=== PATIENT | male | born 1960 | race Caucasian/White ===

== ENCOUNTER 2024-01-27 09:29 | Outpatient (CLI) | payer BC ==
[2024-01-27 19:26] LABS: ALBUMIN 4.3 g/dL (3.2-5.5); ALBUMIN/GLOBULIN RATIO 1.4 (1.0-2.2); BILIRUBIN,TOTAL 0.3 mg/dL (0.2-1.0); CALCIUM 9.4 mg/dL (8.5-10.3); CREATININE 0.8 mg/dL (0.6-1.3); POTASSIUM 3.6 mmol/L (3.5-4.5); TOTAL PROTEIN 7.3 g/dL (6.4-8.9)
[2024-01-27 20:33] LABS: ESTIMATED AVERAGE GLUCOSE 128 mg/dL (70-100); HEMOGLOBIN A1c% 6.1 % (4.27-6.07)
== END 2024-01-27 09:30 | disposition home or self-care (01) ==
LOC: LAB.N 09:29
PROVIDERS: ATTEND Family Medicine
DX: I73.9 Peripheral vascular disease, unspecified (principal)
CPT/HCPCS: 36415; 80053; 83036

== ENCOUNTER 2024-02-03 13:20 | Outpatient (CLI) | payer BC ==
--- NOTE | 2024-02-03 18:51 | Ultrasound Report ---
PROCEDURE: Ankle Brachial Index INDICATIONS: PVD TECHNIQUE: Ankle-brachial indices were obtained bilaterally and recorded. COMPARISONS: None. FINDINGS: Right ankle brachial index (ERWIN): 1.02 Left ankle brachial index (ERWIN): 0.96 IMPRESSION: 1. Normal bilateral resting ABIs. Reviewed by: Faheem Donovan MD on 02/03/2024 6:50 PM PDT Approved by: Faheem Donovan MD on 02/03/2024 6:50 PM PDT Station ID: [id number]
== END 2024-02-03 13:21 | disposition home or self-care (01) ==
LOC: DI 13:20
PROVIDERS: ATTEND Family Medicine
DX: I73.9 Peripheral vascular disease, unspecified (principal); R60.0 Localized edema; N40.0 Benign prostatic hyperplasia without lower urinary tract symptoms; N32.89 Other specified disorders of bladder; N21.0 Calculus in bladder; Z90.49 Acquired absence of other specified parts of digestive tract
CPT/HCPCS: 93922

== ENCOUNTER 2024-02-03 13:22 | Outpatient (CLI) | payer BC ==
[2024-02-03] MEDS ORDERED: iohexoL-300 150 ML BOTTLE ONE (13:30)
[2024-02-03] MEDS: iohexoL-300 150 ML BOTTLE IVP ONE (19:10)
--- NOTE | 2024-02-03 19:12 | CT Report ---
PROCEDURE: Angio Abdomen Runoff BL INDICATIONS: PVD CONTRAST: 125ml omni 300 TECHNIQUE: After the administration of intravenous contrast, a CT scan of the abdomen, pelvis and lower extremit ies (to the feet) was performed. Images were recorded and evaluated at appropriate window settings. R eformats: coronal and sagittal. For radiation dose reduction, the following was used: automated expos ure control, adjustment of mA and/or kV according to patient size. COMPARISON: None. FINDINGS: Image quality: Excellent. Abdominal aorta: There is mixed hard and soft plaque. There is no hemodynamically significant stenos is. Right lower extremity: Common iliac artery: No stenosis External iliac artery: No stenosis Common femoral artery: No significant atherosclerotic disease. Superficial femoral artery: Mild disease. No stenosis. Popliteal artery: No stenosis. Anterior tibial artery: Straight line flow. Somewhat diminutive distally. Peroneal artery: Small vessel, patent to above the ankle Posterior tibial artery: Dominant, patent Left lower extremity: Right lower extremity: Common iliac artery: Plaque. No stenosis. External iliac artery: No significant stenosis Common femoral artery: No significant atherosclerotic disease. Superficial femoral artery: Mild nonflow limiting distal disease. Popliteal artery: No significant atherosclerotic disease. Anterior tibial artery: Straight line flow. Somewhat diminutive distally. Peroneal artery: Small vessel, patent to level of the ankle. Posterior tibial artery: Dominant vessel. Patent. OTHER: Lung bases and heart: Unremarkable. Liver: No solid mass. Low-density lesions likely represent cysts.. Gallbladder and biliary tree: Surgically absent. No biliary dilation, accounting for post-cholecystec kadeem state. Spleen: No splenomegaly. Pancreas: No pancreatic ductal dilation. Adrenals: No adrenal nodule. Kidneys and ureters: No hydronephrosis. No renal cystic lesion which requires follow up. No solid mas s. Bowel and peritoneum: No bowel distension. No pathologic free fluid. Lymph nodes: No central or retroperitoneal adenopathy. Vessels: No infrarenal aortic aneurysm. Reproductive organs: Prostatomegaly. Bladder: There are bladder stones present. There is bladder wall thickening and questionable trabecul ation. Pelvic lymph nodes: No pelvic adenopathy by size criteria. Bones: No aggressive osseous abnormality. Other: Tiny right inguinal hernia. Somewhat prominent left inguinal hernia containing fat. IMPRESSION: 1. There is mild peripheral vascular disease. There is no significant stenosis involving the abdomina l aorta, iliacs, and bilateral lower extremity runoff vessels. There is 3 vessel runoff bilaterally. 2. No acute process in the abdomen and pelvis. 3. Remote cholecystectomy. 4. Prostatomegaly. 5. Bladder trabeculations and bladder stones. Question bladder outlet obstruction versus neurogenic b ladder. Reviewed by: Faheem Donovan MD on 02/03/2024 7:10 PM PDT Approved by: Faheem Donovan MD on 02/03/2024 7:10 PM PDT Station ID: [id number]
== END 2024-02-03 13:23 | disposition home or self-care (01) ==
LOC: DI 13:22
PROVIDERS: ATTEND Family Medicine
DX: R60.0 Localized edema (principal); I73.9 Peripheral vascular disease, unspecified; N40.0 Benign prostatic hyperplasia without lower urinary tract symptoms; N32.89 Other specified disorders of bladder; N21.0 Calculus in bladder; Z90.49 Acquired absence of other specified parts of digestive tract

== ENCOUNTER 2024-03-09 07:49 | Outpatient (CLI) | payer BC ==
[2024-03-09 12:19] LABS: BILIRUBIN,URINE NEGATIVE (NEGATIVE); GLUCOSE, URINE (UA) NEGATIVE (NEGATIVE); KETONES,URINE (UA) NEGATIVE (NEGATIVE); LEUKOCYTE ESTERASE, URINE NEGATIVE (NEGATIVE); NITRITE,URINE NEGATIVE (NEGATIVE); OCCULT BLOOD,URINE MODERATE (NEGATIVE); PH,URINE 7.5 PH (5.0-7.5); PROTEIN,URINE NEGATIVE (NEGATIVE); UROBILINOGEN,URINE 0.2 (NORMAL) E.U./dL (NORMAL)
[2024-03-09 12:32] LABS: AMORPHOUS SEDIMENT,UR Moderate /LPF; BACTERIA,URINE Rare /HPF (None Seen); CLARITY,URINE SL. CLOUDY (CLEAR); SQUAMOUS EPITHELIAL CELL,UR RARE Squamous (<= Few)
[2024-03-09 12:36] LABS: CHOL/HDL RATIO 4.3 (<5.0); CHOLESTEROL 195 mg/dL; HDL CHOLESTEROL 45 mg/dL; LDL CHOLESTEROL,CALCULATED 107 mg/dL; LDL/HDL RATIO 2.4 (<3.6); TRIGLYCERIDES 213 mg/dL; VLDL CHOLESTEROL 43 mg/dL
[2024-03-09 12:45] LABS: THYROID STIMULATING HORMONE 1.34 uIU/mL (0.34-5.60)
[2024-03-11 05:09] LABS: HCV AB Non Reactive (Non Reactive)
[2024-03-12 15:08] LABS: A/G RATIO 1.3 (0.7-1.7); ALBUMIN 4.1 g/dL (2.9-4.4); ALPHA-1-GLOBULIN 0.2 g/dL (0.0-0.4); ALPHA-2-GLOBULIN 0.8 g/dL (0.4-1.0); BETA GLOBULIN 1.1 g/dL (0.7-1.3); GAMMA GLOBULIN 1.1 g/dL (0.4-1.8); GLOBULIN, TOTAL 3.2 g/dL (2.2-3.9); PROTEIN TOTAL 7.3 g/dL (6.0-8.5)
== END 2024-03-09 07:50 | disposition home or self-care (01) ==
LOC: LAB.N 07:49
PROVIDERS: ATTEND Physician Assistant
DX: E78.5 Hyperlipidemia, unspecified (principal); R93.41 Abnormal radiologic findings on diagnostic imaging of renal pelvis, ureter, or bladder; G62.9 Polyneuropathy, unspecified; Z12.5 Encounter for screening for malignant neoplasm of prostate
CPT/HCPCS: 36415; 80061; 81001; 82607; 83721; 84153; 84155; 84165; 84443; 86803; 87086

== ENCOUNTER 2024-04-04 16:02 | Outpatient (CLI) | payer BC ==
[2024-04-04 16:08] LABS: BILIRUBIN,URINE NEGATIVE (NEGATIVE); GLUCOSE, URINE (UA) NEGATIVE (NEGATIVE); KETONES,URINE (UA) NEGATIVE (NEGATIVE); LEUKOCYTE ESTERASE, URINE NEGATIVE (NEGATIVE); NITRITE,URINE NEGATIVE (NEGATIVE); OCCULT BLOOD,URINE SMALL (NEGATIVE); PH,URINE 6.5 PH (5.0-7.5); PROTEIN,URINE NEGATIVE (NEGATIVE); UROBILINOGEN,URINE 0.2 (NORMAL) E.U./dL (NORMAL)
[2024-04-04 16:16] LABS: BACTERIA,URINE Rare /HPF (None Seen); CLARITY,URINE HAZY (CLEAR); RBC,URINE 0-5 /HPF (0-5); SQUAMOUS EPITHELIAL CELL,UR NONE SEEN (<= Few); WBC,URINE 0-3 /HPF (0-3)
[2024-04-04 16:17] LABS: AMORPHOUS SEDIMENT,UR Few /LPF; CRYSTALS,URINE 11-25 Ca Oxalate /LPF
== END 2024-04-04 16:03 | disposition home or self-care (01) ==
LOC: LAB 16:02
PROVIDERS: ATTEND Urology
DX: R31.9 Hematuria, unspecified (principal)
CPT/HCPCS: 81001; 87086